=== PATIENT | male | born 2000 | race Caucasian/White ===

== ENCOUNTER 2019-08-24 03:46 | Inpatient (IN) | payer SELFPAY ==
[~2019-08-24] VITALS: Ht 165.1 cm; Wt 54.4 kg
[2019-08-24 03:52] VITALS: Ht 165.1 cm; Wt 54.4 kg
[2019-08-24 05:13] LABS: CALCIUM 8.8 mg/dL (8.5-10.1); CARBON DIOXIDE 22.2 mmol/L (21-32); CHLORIDE SERUM 101 mmol/L (98-107); CREATININE SERUM 0.8 mg/dL (0.7-1.3); GFR1 > 60 mL/min; GLUCOSE SERUM 135 mg/dL (74-106); POTASSIUM SERUM 3.4 mmol/L (3.5-5.1); SODIUM SERUM 138 mmol/L (136-145)
[2019-08-24 05:18] LABS: ALBUMIN 4.8 g/dL (3.4-5.0); ALKALINE PHOSPHATASE 68 U/L (46-116); ALT/SGPT 15 U/L (16-63); AST/SGOT 15 U/L (15-37); BILIRUBIN TOTAL 3.6 mg/dL (0.20-1.00); LIPASE 56 IU/L (73-393); TOTAL PROTEIN, SERUM 7.8 g/dL (6.4-8.2)
[2019-08-24 05:48] LABS: BASOPHIL % 0.4 % (0-2); PLATELET COUNT 244 x10^3mcL (130-400); RED CELL DISTRIBUTION WIDTH 13.7 % (11.5-14.5)
[2019-08-24 07:44] LABS: AMPHETAMINE QUAL UR NONE DETECTED (See below)
[2019-08-24 10:20] VITALS: BP 121/78
[2019-08-24 12:38] VITALS: BP 105/67
[2019-08-24 15:47] LABS: microscopic required? NO
[2019-08-24 16:20] LABS: UA SPECIFIC GRAVITY 1.025 (1.005-1.035); urine erythrocyte NEGATIVE (NEGATIVE)
[2019-08-24 16:42] VITALS: BP 92/56
[2019-08-24 18:30] VITALS: BP 107/62
[2019-08-24 21:18] VITALS: BP 99/52
[2019-08-25 05:47] VITALS: BP 100/54
[2019-08-25 06:38] LABS: PLATELET COUNT 179 x10^3mcL (130-400); RED CELL DISTRIBUTION WIDTH 14.1 % (11.5-14.5)
[2019-08-25 07:12] LABS: CALCIUM 7.8 mg/dL (8.5-10.1); CARBON DIOXIDE 25.4 mmol/L (21-32); CHLORIDE SERUM 104 mmol/L (98-107); CREATININE SERUM 0.8 mg/dL (0.7-1.3); GFR1 > 60 mL/min; GLUCOSE SERUM 135 mg/dL (74-106); SODIUM SERUM 138 mmol/L (136-145)
[2019-08-25 08:54] VITALS: BP 100/57
[2019-08-25 12:15] LABS: BAND NEUTROPHIL 4 % (0-10); MONOCYTE 6 % (0-7); SEGMENTED NEUTROPHILS 84 % (37-75)
[2019-08-25 12:16] LABS: rbc morphology (normal/abnorm) NORMAL (NORMAL)
[2019-08-25 12:59] VITALS: BP 95/63
[2019-08-25 16:39] VITALS: BP 102/70
[2019-08-25 20:30] VITALS: BP 98/60
[2019-08-26 05:24] VITALS: BP 95/52
[2019-08-26 06:48] LABS: CALCIUM 7.7 mg/dL (8.5-10.1); CARBON DIOXIDE 31.7 mmol/L (21-32); CHLORIDE SERUM 105 mmol/L (98-107); CREATININE SERUM 0.6 mg/dL (0.7-1.3); GFR1 > 60 mL/min; GLUCOSE SERUM 99 mg/dL (74-106); POTASSIUM SERUM 3.8 mmol/L (3.5-5.1); SODIUM SERUM 140 mmol/L (136-145)
[2019-08-26 07:17] LABS: BASOPHIL % 0.2 % (0-2); PLATELET COUNT 175 x10^3mcL (130-400)
[2019-08-26 07:52] LABS: RED CELL DISTRIBUTION WIDTH 14.6 % (11.5-14.5)
[2019-08-26 07:54] VITALS: BP 107/66
[2019-08-26] MEDS ORDERED: AUG500 PO (08:48)
[2019-08-26] MEDS ORDERED: NORCO1 TA2 PO ×2 (08:48→13:30)
[2019-08-26 11:41] VITALS: BP 107/66
== END 2019-08-26 12:25 | disposition home or self-care (01) | DRG 340 ==
LOC: ED 03:46 → MU 06:40
PROVIDERS: Emergency Medicine; Surgery; ADMIT Student in an Organized Health Care Education/Training Program; ATTEND Student in an Organized Health Care Education/Training Program
PROC: 0DTJ4ZZ Resection of Appendix, Percutaneous Endoscopic Approach (ICD-10-PCS; principal; 2019-08-24 17:30)
DX: K35.32 Acute appendicitis with perforation, localized peritonitis, and gangrene, without abscess (principal); D72.829 Elevated white blood cell count, unspecified
CPT/HCPCS: G0378; J0500; J1170; J1885; J2270; J2405; J2543; J3010; J3480; J3490; J7030; Q0092